=== PATIENT | female | born 1970 | race Caucasian/White ===

== ENCOUNTER 2023-12-07 14:01 | Emergency (ER) | payer OTHER, SELFPAY ==
[2023-12-07 14:03] VITALS: BP 122/82
[2023-12-07 14:50] VITALS: BMI 25.7
--- NOTE | 2023-12-07 15:23 | ED.GENMED ---
History of Present Illness
General
Chief Complaint: Skin Problem
Source: patient
Exam Limitations: none
Time Seen by Provider: 12/07/23 15:08
Nursing documentation reviewed up to this point in time: agreed with
Travel History
Have you had any contact with someone who has COVID-19?: No
Do you have any symptoms of coronavirus? Fever > 100 degrees, chills, cough, shortness of breath, sore throat, loss of taste or smell, muscle aches, or headache?: No
History of Present Illness
History of Present Illness:
The patient is a pleasant 53-year-old female who reports redness, pain, and swelling primarily of the right ear, behind the right ear, the right cheek area, and slightly down the right neck. Patient reports it started a few days ago. She reports
her fever got as high as 101 yesterday. She reports she took Tylenol ' on an empty stomach' last night and feels that it prompted her to feel nauseous. She reports she vomited both last night and this morning. Patient was evaluated by her primary
care doctor and started on steroids and Augmentin, however, due to her ongoing nausea, she was unable to start any of this medication. Patient reports that she has eczema inside her right ear canal and recently put lotion on it. She is not sure if
this created an infection. Patient denies sore throat, cough, and any difficulty swallowing. Patient has significant swelling of her right ear.
Past History
Past History
ED Past Medical History: None
ED Past Surgical History: None
Social History
Tobacco: Non-smoker
Alcohol: Other
Drug: None
Living: other
Employment: Other
Family History
Family History: Other
Review of Systems
Review of Systems
Allergies reviewed?: Yes
All Other Systems: ROS reviewed and negative except as documented in HPI and ROS
Constitutional: Reports fever
EENT: Reports other
Respiratory: Reports no symptoms
Cardiac: Reports no symptoms
ABD/GI: Reports abdominal pain (Mild epigastric, intermittent since yesterday) and nausea
: Reports no symptoms
Musculoskeletal: Reports no symptoms
Skin: Reports other
Neurological: Reports no symptoms
Endocrine: Reports no symptoms
Hematologic/Lymphatic: Reports no symptoms
Psychiatric: Reports no symptoms
Phy Exam
Physical Exam
Physical Exam:
Physical Exam
General: no apparent distress, not acutely ill
Neck: Swelling and erythema of complete right pinna of ear. Significant swelling and erythema of right tympanic membrane. Post auricle lymphadenopathy on right. Mild swelling of area and erythema behind right ear and in
front of right ear towards right cheek. Patient has no uvular swelling.
Heart: Tachycardic, no murmur
Lungs: no acute respiratory distress. clear bilaterally
Abdomen: normal bowel sounds. not tender. no CVAT
Neuro: alert and oriented. no focal neurological deficits
Skin: no rash
Psychiatric: well kept. interactive and cooperative
Extremities: no edema. no calf tenderness. negative homans. good distal pulses
Course
Orders/Labs/Results
Orders:
Orders
12/07/23 15:22
0.9% Sodium Chloride 1000 ml [Nss] 1,000 ml IV BOLUS
Ondansetron Injectable [Zofran] 4 mg IV NOW STA
12/07/23 15:24
Complete Blood Count/With Diff Urgent
Comprehensive Metabolic Panel Urgent
Lipase Urgent
12/07/23 15:29
Acetaminophen [Tylenol] 1,000 mg PO NOW STA
12/07/23 15:33
CT Facial Bones W/ Iv Contrast Urgent
Comment:
Reason For Exam: R facial cellulitis
12/07/23 15:42
Clindamycin Phosphate [Cleocin] 450 mg 0.9% Sodium Chloride [Nss] 50 ml IV NOW
Abnormal Lab Results
12/07/23
15:24
WBC 12.6 H 10^3/uL
(4.8-10.8)
Absolute Neuts (auto) 9.8 H 10^3/uL
(1.4-6.5)
Absolute Monos (auto) 1.0 H 10^3/uL
(0.1-0.6)
Neutrophils % 78.1 H %
(42.2-75.2)
Lymphocytes % 13.3 L %
(20.5-51.1)
Glucose 105 H mg/dl
(70-99)
12/07/23 15:24
12/07/23 15:24
Vital Signs
Initial and Last Documented VS:
Initial Vital Signs
Temp Pulse Resp BP Pulse Ox
100.2 F 120 20 122/82 98
12/07/23 14:03 12/07/23 14:03 12/07/23 14:03 12/07/23 14:03 12/07/23 14:03
Last Documented Vital Signs
Temp Pulse Resp BP Pulse Ox
100.2 F 120 20 122/82 98
12/07/23 14:03 12/07/23 14:03 12/07/23 14:03 12/07/23 14:03 12/07/23 14:03
MDM/Problems Addressed
Differential Diagnosis Includes:
Otitis externa, facial cellulitis, mastoiditis
MDM/Problems Addressed:
Patient presents with extensive swelling of right ear and external right ear canal as well as area in front and behind right ear
*Radiology
Radiology exam reviewed: radiology read reviewed
*Critical Care Note
Total Time (30-74mins, 75-104mins- exclusive of procedures): Not Applicable
Update Note
Update Note:
6:30 PM patient reports she feels much better and is eating and drinking. She adamantly wants to go home and reports that she will start the Augmentin that her primary care doctor gave her. Patient no longer has nausea or any abdominal pain. Is
doubtful she has acute pancreatitis or acute cholecystitis given that her LFTs and lipase are normal and she has no further symptoms. Patient told to return immediately with any worsening pain, redness or swelling of her face or ear. Patient
reports she has a doctor's appointment with her primary care doctor this or Wednesday so has close follow-up.
ED Attending Note
-
Portions of this chart may have been created with voice recognition software.� Occasional wrong word or��sound alike� substitutions may have occurred due to the inherent limitations of voice recognition software.
Discharge Plan
Departure
Patient Disposition: Home (Routine Discharge)
Date of Disposition: 12/07/23
Time of Disposition: 18:53
Patient with high blood pressure during this ER visit?: No
Condition: Good
Covid-19: Not Applicable
Discharge Problem:
Cellulitis of face
Instructions: Cellulitis (Skin Infection), Adult (DC)
Prescriptions:
New
ondansetron 4 mg tablet,disintegrating
4 mg PO BID PRN (Reason: nausea and vomiting) Qty: 10 0RF
Referrals:
Saima Gil MD [Family Provider] -
Activity Restrictions/Additional Instructions:
Take your first dose of the antibiotic, Augmentin, this evening with crackers. Please follow-up with your primary care doctor at the end of the week as scheduled. Return for any worsening redness or swelling. Use the Zofran as needed for nausea.
Interventions
Interventions:
*Risk Screen - Suicide Last Done: 12/07/23 14:03
*General Assessment Last Done: 12/07/23 14:03
*Neglect/Abuse Screening Last Done: 12/07/23 14:03
[facility]bcbns[facility] Assessment Last Done: 12/07/23 14:50
ED-Skin Assessment Last Done: 12/07/23 14:50
Discharge Date and Time
Print Language: PORTUGUESE
[2023-12-07] MEDS: NSS 1000 IV (15:33)
[2023-12-07] MEDS: TYLENOL 1000 MG PO (15:34)
[2023-12-07] MEDS: ZOFRAN 4 MG IV (15:34)
[2023-12-07 15:39] LABS: % Basophils 0.2 % (0-2); % Immature Granulocytes 0.3 % (0-0.5); % Lymphocytes 13.3 % (20.5-51.1); % Monocytes 8.1 % (1.7-9.3); % Neutrophils 78.1 % (42.2-75.2); Absolute Lymphocytes 1.7 10^3/uL (1.2-3.4); Absolute Neutrophils 9.8 10^3/uL (1.4-6.5); Hematocrit 39.3 % (37.0-47.0); Hemoglobin 13.9 g/dL (12.0-16.0); Mean Corp Hgb Conc. 35.4 g/dL (33.0-37.0); Mean Corpuscular Volume 84.9 fL (81.0-99.0); Mean Platelet Volume 10.1 fL (7.4-10.4); Nucleated Red Blood Cells % 0 %; Platelet Count 243 10^3/uL (130-400); Red Blood Cell Count 4.63 10^6/uL (4.20-5.40); Red Cell Dist. Width 12.8 % (11.5-14.5); White Blood Cell Count 12.6 10^3/uL (4.8-10.8)
[2023-12-07 15:58] LABS: ALT (SGPT) 21 U/L (0-35); AST (SGOT) 28 U/L (14-36); Albumin 4.5 g/dl (3.5-5.0); Alkaline Phosphatase 70 U/L (38-126); Blood Urea Nitrogen 9 mg/dl (7-17); Calcium 9.4 mg/dl (8.4-10.2); Carbon Dioxide 26 mmol/L (22-30); Chloride 104 mmol/L (98-107); Estimated Creatinine Clearance 75 ml/min; Glucose 105 mg/dl (70-99); Lipase 53 U/L (23-300); Potassium 3.7 mmol/L (3.5-5.1); Sodium 135 mmol/L (135-145); Total Bilirubin 0.8 mg/dl (0.2-1.3); Total Protein 7.4 g/dl (6.3-8.2); eGFR > 60.00
[2023-12-07] MEDS: CLEOCIN 53 MG IV (16:12)
[2023-12-07 19:01] VITALS: BP 116/64
== END 2023-12-07 19:03 | disposition home or self-care (01) ==
LOC: EMR 14:01
PROVIDERS: EMERGENCY PHYSICIAN Emergency Medicine; FAMILY PHYSICIAN Internal Medicine
DX: L03.211 Cellulitis of face (principal)
CPT/HCPCS: 99284; 96365; 96375; 70487; 80053; 83690; 85025; Q9967